=== PATIENT | female | born 1955 | race Caucasian/White ===

== ENCOUNTER 2021-07-20 08:39 | Emergency (ER) | payer OTHER, BC, SELFPAY ==
--- NOTE | ~2021-07-20 | CT_ITS ---
EXAMINATION: CT cervical spine wo con DATE: 07/20/2021 09:07 INDICATION: Fall on ice this morning. Head and neck injury. TECHNIQUE: Computed tomography (CT) of the cervical spine was performed without intravenous contrast. Automated exposure control and iterative reconstruction technique were employed. Exam dose: 436.55 mGy-cm total exam DLP. COMPARISON: None FINDINGS: There is prominent enlargement of the left lobe of the thyroid gland which measures up to 3 .8 cm AP and 4 cm transverse dimension. Consider thyroid ultrasound examination for further evaluatio n. There is straightening of the cervical spine which may be due to muscle spasm or positioning. Mild degenerative disc disease at C4-5. There is moderately severe degenerative disc disease C5-6 and C6-7 with anterior and posterior spurri ng at each of these levels.. There is degenerative change at the apophyseal joints throughout the cervical spine. Uncovertebral nicho int spurring is noted at C5-6 and C6-7, particularly prominent on the right at C6-7. No fracture or dislocation or locked facet or prevertebral soft tissue swelling. IMPRESSION: Straightening of the cervical spine which may be due to muscle spasm Cervical spondylosis, most pronounced at C5-6 and C6-7 No fracture or dislocation or locked facet Prominent enlargement of left lobe of thyroid gland; consider thyroid ultrasound examination Reviewed, dictated and finalized at [facility]. Reviewed, dictated and finalized at location [facility]. N SERVICES SUPERVISOR IMPRESSION: Straightening of the cervical spine which may be due to muscle spa sm Cervical spondylosis, most pronounced at C5-6 and C6-7 No fracture or dislocation or locked facet Prominent enlargement of left lobe of thyroid gland; consider thyroid ultrasoun d examination
--- NOTE | ~2021-07-20 | CT_ITS ---
EXAMINATION: CT brain wo con DATE: 07/20/2021 09:07 INDICATION: Patient fell on ice this morning. Head injury. TECHNIQUE: Computed tomography (CT) of the head was performed without intravenous contrast. The mA wa s adjusted according to patient size. Iterative reconstruction technique was employed. Exam dose: 60 5.33 mGy-cm total exam DLP. COMPARISON: None FINDINGS: No intracranial mass lesion or hemorrhage or cerebrovascular accident, midline shift or mas s effect. Normal ventricular size. There is bilateral carotid siphon internal carotid artery calcification. No subdural or epidural hematoma. Small mucous retention cyst at the posteromedial right maxillary sinus and mild focal mucoperiosteal thickening of the right sphenoid sinus. The mastoid air cells are normally developed and aerated. No fracture or bone destruction of the cranial vault. IMPRESSION: No skull fracture or acute intracranial abnormality Reviewed, dictated and finalized at [facility]. Reviewed, dictated and finalized at location [facility]. LE FRAME SHAPER
[2021-07-20 08:42] VITALS: BP 157/81; PULSE 63; RESP 16; TEMP 36.7; O2SAT 99
--- NOTE | 2021-07-20 09:05 | ED.GENADULT ---
HPI - General Adult General Chief complaint: Head Injury Stated complaint: head injury, fall Time Seen by Provider: 07/20/21 08:43 Source: patient and family Mode of arrival: ambulatory Limitations: no limitations History of Present Illness HPI narrative: Patient is 65 years old white female slipped on ice early this morning fell backward, struck the back of her head on the ground, no loss of consciousness, patient denies taking any blood thinner medications, or other injuries. Patient also denies any nausea or vomiting. Related Data Home Medications Medication Instructions Recorded Confirmed omeprazole 40 mg PO DAILY 07/20/21 Allergies Allergy/AdvReac Type Severity Reaction Status Date / Time No Known Allergies Allergy Mild Verified 07/20/21 08:49 Review of Systems Review of Systems: CONSTITUTIONAL: Denies fever, chills, or sweats. EYES: Denies visual changes, redness, or discharge. ENT: Denies rhinorrhea, congestion, sore throat, or otalgia. CARDIOVASCULAR: Denies chest pain, palpitations, or edema. RESPIRATORY: Denies cough or dyspnea. GASTROINTESTINAL: Denies abdominal pain, nausea, vomiting, or diarrhea. GENITOURINARY: Denies dysuria or hematuria. SKIN: Denies rash or itching. MUSCULOSKELETAL: Denies back pain, joint pain, or myalgia. NEUROLOGIC: Denies headache, numbness, or weakness. PSYCHIATRIC: Denies anxiety or depression. Exam Narrative: General appearance: Well-developed, well-nourished Skin: Normal color Head: Normocephalic, slight diffuse tenderness posteriorly, no bruises or hematoma Eyes: Clear conjunctiva ENT: Oropharynx normal, ears normal, nose normal Neck: Supple, nontender Chest and respiratory: Airway patent, no respiratory distress, no accessory muscle use Heart: Regular rate/rhythm Abdomen: Soft, nontender, no organomegaly, quiet bowel sounds Vascular: Normal peripheral pulses, normal capillary refill. Musculoskeletal: Normal range of motion, nontender back Neurologic: Alert and oriented ?3, PLASTIC STRAIGHTENING ROLL OPERATOR is normal as tested, no gross motor deficit Course Course Emergency Course: Stable Vital Signs Vital signs: Vital Signs Temperature 36.7 C 07/20/21 08:42 Pulse Rate 63 07/20/21 08:42 Respiratory Rate 16 07/20/21 08:42 Blood Pressure 157/81 H 07/20/21 08:42 Pulse Oximetry 99 07/20/21 08:42 Temperature 36.7 C 07/20/21 08:42 Pulse Rate 63 07/20/21 08:42 Respiratory Rate 16 07/20/21 08:42 Blood Pressure 157/81 H 07/20/21 08:42 Pulse Oximetry 99 07/20/21 08:42 Medical Decision Making MDM Narrative Medical decision making narrative: Head injury after a fall, no loss of consciousness, the possibility any major injury is less likely, CT head and cervical spine ordered. Differential Diagnosis Differential Diagnosis: Contusion, scalp hematoma, intracranial hematoma or bleeding Vital Signs Vital Signs: Vital Signs Temperature 36.7 C 07/20/21 08:42 Pulse Rate 63 07/20/21 08:42 Respiratory Rate 16 07/20/21 08:42 Blood Pressure 157/81 H 07/20/21 08:42 Pulse Oximetry 99 07/20/21 08:42 Temperature 36.7 C 07/20/21 08:42 Pulse Rate 63 07/20/21 08:42 Respiratory Rate 16 07/20/21 08:42 Blood Pressure 157/81 H 07/20/21 08:42 Pulse Oximetry 99 07/20/21 08:42 Imaging Data Radiologist's impression: Impressions Head CT 07/20/21 09:08 IMPRESSION: No skull fracture or acute intracranial abnormality Cervical Spine CT 07/20/21 09:12 IMPRESSION: Straightening of the cervical spine which may be due to muscle spasm Cervical spondylosis, most pronounced at C5-6 and C6-7 No fracture or dislocation or locked facet Prominent enlargement of le
== END 2021-07-20 09:52 | disposition home or self-care (01) ==
PROVIDERS: Emergency Provider Emergency Medicine
DX: S06.0X0A Concussion without loss of consciousness, initial encounter (principal); W00.0XXA Fall on same level due to ice and snow, initial encounter
CPT/HCPCS: 70450; 72125; 99284

== ENCOUNTER 2021-11-07 14:41 | Emergency (ER) | payer BC, SELFPAY ==
--- NOTE | 2021-11-07 14:51 | ED.SKABFB ---
HPI - Skin/Abscess/Foreign Bdy General Chief complaint: Skin/Abscess/Foreign Body Stated complaint: INSECT BITE L FOOT Time Seen by Provider: 11/07/21 14:51 Source: patient and RN notes reviewed History of Present Illness HPI narrative: Patient is 65-year-old female who presents the urgent care with complaints of an insect bite to the left foot. Patient states that she noticed that 3 days ago while she was on vacation. Patient states that she has been soaking it in Epson salt. States that she has been itching a lot over the last few days and her sandal did rub directly over the area, causing some bruising. States that it became increased in swelling however she does typically have lower extremity swelling and they have been driving for hours this morning. Patient denies of any fever, nausea or vomiting. No other acute complaints. No acute distress noted. Patient aware of the plan of care. Some parts of this dictation were generated by voice recognition software and may contain typographical and/or grammatical inaccuracies. Related Data Home Medications Medication Instructions Recorded Confirmed omeprazole 40 mg capsule,delayed 40 mg PO DAILY 07/20/21 11/07/21 release Allergies Allergy/AdvReac Type Severity Reaction Status Date / Time No Known Allergies Allergy Mild Verified 11/07/21 15:04 Review of Systems Review of Systems: CONSTITUTIONAL: Denies fever, chills, or sweats. EYES: Denies visual changes, redness, or discharge. ENT: Denies rhinorrhea, congestion, sore throat, or otalgia. CARDIOVASCULAR: Denies chest pain, palpitations, or edema. RESPIRATORY: Denies cough or dyspnea. GASTROINTESTINAL: Denies abdominal pain, nausea, vomiting, or diarrhea. GENITOURINARY: Denies dysuria or hematuria. SKIN: Reports of an insect bite to the left foot MUSCULOSKELETAL: Denies back pain, joint pain, or myalgia. NEUROLOGIC: Denies headache, numbness, or weakness. All other systems reviewed are negative, except as documented in HPI. PMFSH Comments At the time of my signature, I reviewed and agree with the nursing past medical, surgical, social, and family history. There is no relevant family history pertinent to the patient complaint. Exam Narrative: GENERAL: This is a well-nourished, well-developed patient, in no apparent distress. HEAD: normocephalic, atraumatic. EYES: PERRL. Sclera clear/white. Vision is grossly intact. EARS: External ears normal NOSE: External nose normal with no obvious nasal discharge, nares without redness, no rhinorrhea. THROAT: Mucous membranes moist NECK: Neck supple CARDIOVASCULAR: Regular rate and rhythm without murmurs, gallops, or rubs. RESPIRATORY: Clear to auscultation. Breath sounds equal bilaterally. No wheezes, rales, or rhonchi. SKIN: 4 x 4 centimeter of erythema/ecchymosis noted to the lateral dorsal left foot with pinpoint puncture wound without drainage NEURO: awake, alert, and oriented to person, place and time. There were no obvious focal neurologic abnormalities. EXTREMITIES: 2+ left lower pitting edema, 1+ right lower extremity pitting edema. Positive strong bilateral pedal pulses. Negative bilateral Homans' sign Course Course Level of Care: Express Care Visit Vital Signs Vital signs: Vital Signs Temperature 96.4 F L 11/07/21 15:06 Pulse Rate 62 11/07/21 15:06 Respiratory Rate 18 11/07/21 15:06 Blood Pressure 135/70 11/07/21 15:06 Pulse Oximetry 100 11/07/21 15:06 Temperature 96.4 F L 11/07/21 15:06 Pulse Rate 62 11/07/21 15:06 Respiratory Rate 18 11/07/21 15:06 Blood Pressure 135/70 11/07/21 15:06 Pulse Oximetry 100 11/07/21 15:06 Reviewed MDM - Skin/Abscess/Foreign Bdy MDM Narrative Medical decision making narrative: Advised the patient to keep the feet elevated and use ice to the left foot as needed for comfort or pain. Increased swelling is likely related to your recent travel. Advised the patient to complete the oral antibi
[2021-11-07 15:06] VITALS: BP 135/70; PULSE 62; RESP 18; TEMP 35.8; O2SAT 100
== END 2021-11-07 15:50 | disposition home or self-care (01) ==
PROVIDERS: Emergency Provider Nurse Practitioner Family; PCP Family Medicine
DX: L03.116 Cellulitis of left lower limb (principal); K21.9 Gastro-esophageal reflux disease without esophagitis
CPT/HCPCS: 99213; G0463

== ENCOUNTER 2022-03-27 02:29 | Day surgery (SDC) | payer MEDICARE, SELFPAY ==
[2022-03-08 15:45] VITALS: BMI 36.8
--- NOTE | 2022-03-25 09:59 | PM.HPGS ---
History of Present Illness History of Present Illness Consent: Risks, benefits, and alternatives have been discussed and questions answered. Patient agrees to proceed with procedure. Chief complaint: neoplasm screening Narrative: Millicent Wellington is a 66 year old female referred for colon cancer screening. Review of Systems Review of Systems: All systems reviewed & are unremarkable except as noted in HPI and below PMFSH Past Medical History Medical History GERD (gastroesophageal reflux disease) Hyperlipidemia Social History Social History Smoking status: Never smoker Alcohol intake: current Drinks per week: 1 Substance use type: does not use Living arrangements: other Additional living arrangements comments: with sp Meds Home Medications and Allergies Home Medications Medication Instructions Recorded Confirmed Type omeprazole 40 mg capsule,delayed 40 mg PO DAILY 07/20/21 03/08/22 History release atorvastatin 10 mg tablet 10 mg PO DAILY 03/08/22 03/08/22 History Allergies Allergy/AdvReac Type Severity Reaction Status Date / Time No Known Allergies Allergy Mild Verified 03/27/22 08:39 Exam Resp: Auscultation: clear to auscultation bilaterally Cardio: Rate: regular rate Rhythm: regular rhythm GI: GI Palp: Yes Soft to palpation and No Tenderness to palpation present (GI) Assessment and Plan Assessment and plan (1) Colon cancer screening: Code(s): Z12.11 - Encounter for screening for malignant neoplasm of colon Status: Acute Assessment and Plan: Colonoscopy with possible biopsy or polypectomy or cautery or injection of substances.
--- NOTE | 2022-03-27 08:38 | WPDANESEPPF ---
Anes - Initial Pre Proc Eval Procedure: Operation Date: 03/27/22 09:30 Proposed Procedures p Screening Colonoscopy - Andre Mcclendon MD Date/Time: 03/27/22 08:38 Surgeon: Andre Mcclendon MD Pre Op Diagnosis: neoplasm screening Patient Data Age: 66 Gender: F Height: 1.68 m Weight: 103.5 kg Allergies Allergy/AdvReac Type Severity Reaction Status Date / Time No Known Allergies Allergy Mild Verified 03/27/22 08:39 Home Medications Medication Instructions Recorded Confirmed Type omeprazole 40 mg capsule,delayed 40 mg PO DAILY 07/20/21 03/08/22 History release atorvastatin 10 mg tablet 10 mg PO DAILY 03/08/22 03/08/22 History Patient hx anesthesia problems: none Family hx anesthesia problems: none Results Review: All pre-operative results and documents have been reviewed as part of the pre-operative evaluation. [facility] Past Medical History Medical History (Updated 03/27/22 @ 08:38 by Elmo Knutson DO) GERD (gastroesophageal reflux disease) Hyperlipidemia Social History Social History Smoking status: Never smoker Alcohol intake: current Drinks per week: 1 Substance use type: does not use Living arrangements: other Additional living arrangements comments: with sp Anes - Eval Final PreProcedure Day of Procedure 03/27/22 08:38 Patient weight: obese Heart: regular rate and rhythm Lungs: clear to auscultation Airway: Mallampati scale class II Neurological: alert and oriented Last oral intake: >/= 8 hours ASA classification: II Emergent: no Anesthetic plan: proceed Anesthesia type and monitoring: general GIVS and standard monitoring Results Review: All pre-operative results and documents have been reviewed as part of the pre-operative evaluation. Informed Consent: The patient's anesthetic plan and its attendant risks and benefits were discussed with the patient/family/POA. Questions were solicited and answers provided to the satisfaction of the patient/family/POA.
[2022-03-27 08:41] VITALS: BP 147/65; PULSE 48; RESP 20; TEMP 36.2; O2SAT 100; BMI 36.2
[2022-03-27] MEDS: LACTATED RINGERS 1,000 ML 150 ML IV CONT (08:44)
[2022-03-27 09:43] VITALS: BP 116/64; PULSE 55; RESP 17; O2SAT 97
[2022-03-27 09:53] VITALS: BP 142/77; PULSE 53; RESP 19; O2SAT 98
[2022-03-27 10:03] VITALS: BP 142/74; PULSE 63; RESP 18; O2SAT 100
== END 2022-03-27 10:13 | disposition home or self-care (01) ==
PROVIDERS: PCP Family Medicine; Visit Provider Internal Medicine Gastroenterology
PROC: 0DJD8ZZ Inspection of Lower Intestinal Tract, Via Natural or Artificial Opening Endoscopic (ICD-10-PCS; CPT 45378; principal; 2022-03-27 09:30)
DX: Z12.11 Encounter for screening for malignant neoplasm of colon (principal); K57.30 Diverticulosis of large intestine without perforation or abscess without bleeding; Z80.0 Family history of malignant neoplasm of digestive organs; K21.9 Gastro-esophageal reflux disease without esophagitis; E78.5 Hyperlipidemia, unspecified; E66.9 Obesity, unspecified; Z68.36 Body mass index [BMI] 36.0-36.9, adult
CPT/HCPCS: G0105; J2704; J7120

== ENCOUNTER → 2023-04-06 08:13 | Outpatient (CLI) | payer MEDICARE, SELFPAY ==
--- NOTE | ~2023-04-06 | US_ITS ---
US breast LT limited DATE: 04/06/2023 14:44 Please refer to 05/07/2023 combined left diagnostic mammogram and ultrasound report IMPRESSION: BI-RADS Category 4 suspicious abnormality; biopsy should be considered Recommendation: Stereotactic biopsy of posterior upper outer quadrant left breast mass Dr. Pruitt telephoned the report and ultrasound-guided biopsy recommendation on 04/06/2023 at [address] Borrero Reviewed, dictated and finalized at [facility]. Reviewed, dictated and finalized at [facility]. IMPRESSION: BI-RADS Category 4 suspicious abnormality; biopsy should be conside red Recommendation: Stereotactic biopsy of posterior upper outer quadrant left breonna st mass Dr. Pruitt telephoned the report and ultrasound-guided biopsy recommendation on at [address] Borrero
--- NOTE | ~2023-04-06 | MM_ITS ---
EXAMINATION: MM diagnostic miguel LT w dong HISTORY: Follow-up of left breast mammographic abnormality from another facility TECHNIQUE: Full field and spot ML, MLO and CC 3-D tomosynthesis images of the left breast were perfor med and synthetic 2-D images were generated. CAD analysis was submitted and interpreted. High resolut ion upper outer and lower-outer quadrant left breast ultrasound was performed. COMPARISON: 06/26/2022, 05/25/2021, 05/05/2020 outside bilateral screening mammogram examinations FINDINGS: MAMMOGRAPHIC FINDINGS: There is an approximately 4.5 mm circumscribed mammographic opacity in the upper outer quadrant with lobular outline, not present on 04/25/2020. This is suspicious. 2.7 x 4.5 mm low-density circumscribed opacity is noted in the posterior outer mid left breast (left CC Tomosynthesis image 31/82), likely a small intramammary lymph node or other benign entity. No other significant finding is noted. ULTRASOUND: 3:00 8 cm from nipple: Parallel circumscribed approximately 1.4 x 2.8 x 3 mm hypoechoic lesion is not ed without internal vascularity or posterior shadowing, benign in appearance. No other significant sonographic abnormality of the upper outer or lower outer quadrants of left breonna st is detected. IMPRESSION: 1. Suspicious 4.5 mm mass, posterior upper outer left breast 2. Stereotactic biopsy of posterior upper outer quadrant left breast mass is recommended BI-RADS category 4, suspicious findings. Reviewed, dictated and finalized at [facility]. IMPRESSION: 1. Suspicious 4.5 mm mass, posterior upper outer left breast 2. Stereotactic biopsy of posterior upper outer quadrant left breast mass is re commended BI-RADS category 4, suspicious findings.
== END ==
PROVIDERS: PCP Family Medicine; Visit Provider Family Medicine
DX: R92.8 Other abnormal and inconclusive findings on diagnostic imaging of breast (principal)
CPT/HCPCS: 76642; 77061; 77065; G0279

== ENCOUNTER 2023-04-24 12:51 | Outpatient (CLI) | payer MEDICARE, SELFPAY ==
--- NOTE | ~2023-04-24 | MM_ITS ---
EXAMINATION: MM stereotactic bx LT, MM post biopsy diagnostic LT, MM stereotactic specimen LT DATE: 04/24/2023 14:20 (accession [id number]), 04/24/2023 14:21 (accession [id number]), 04/24 14:21 (accession [id number]) INDICATION: Indeterminate mass at the 12:00 location of the left breast without sonographic correlate . Stereotactic core biopsy is requested evaluate for malignancy. TECHNIQUE AND FINDINGS: The risks and potential benefits of the procedure were discussed with the patient including bleeding and infection. A time out was performed to verify the patient's name, date of and site of proce dure to be performed. The patient was placed in the prone position with the left breast in craniocaud al compression, and the area of interest was localized and targeted utilizing digital imaging with st ereotaxis. After sterile preparation of the skin, 3 cc of 1% lidocaine were utilized for local anesthesia at the skin puncture site and 18 of 1% lidocaine with epinephrine were utilized for deeper local anesthesia about the biopsy site. A 9G Stackdriver vacuum assisted biopsy needle was advanced to the level of the carlos alberto cification of interest from a cephalad approach utilizing stereotactic guidance and a total of six ti ssue core biopsies were obtained. A specimen radiograph demonstrates fragments of the mass of interest are included within the tissue c ores. A tissue marker clip was then placed at the biopsy site. The needle was removed and hemostasis was achieved. A sterile bandage was applied. The patient tolerated procedure well and there was no e vidence of immediate complication. The patient was given verbal instructions to return to the Emergen cy Department in the event of severe breast pain or rapid breast enlargement. Tissue cores were submi tted to surgical pathology for histologic analysis. A 2-view left unilateral digital mammogram was obtained post procedure and this demonstrates that the tissue marker clip is in expected position. IMPRESSION: 1. Successful stereotactic biopsy of an indeterminate mass at the 12:00 location in the left breast, followed by tissue marker clip placement. Reviewed, dictated and finalized at location A. O AGENT IMPRESSION: 1. Successful stereotactic biopsy of an indeterminate mass at the 12:00 locatio n in the left breast, followed by tissue marker clip placement. IMPRESSION: 1. Successful stereotactic biopsy of an indeterminate mass at the 12:00 locatio n in the left breast, followed by tissue marker clip placement.
== END 2023-04-24 12:52 | disposition home or self-care (01) ==
PROVIDERS: PCP Family Medicine; Visit Provider Family Medicine
DX: R92.8 Other abnormal and inconclusive findings on diagnostic imaging of breast (principal)
CPT/HCPCS: 19081; 77065; 88305; 88342

== ENCOUNTER 2023-10-17 08:26 | Outpatient (CLI) | payer MEDICARE, SELFPAY ==
--- NOTE | ~2023-10-17 | DEXA_ITS ---
Bone Density Report Name: ZAID YBARRA Age: 67 Sex: Female Ethnicity: White Date of : 1955 Indication: postmenopausal; screening for osteoporosis; cancer; Referring Provider: Elgin, Omar June Study: Bone densitometry was performed. Exam Date: October 17, 2023 Accession number: [id number] Bone Density: Region BMD T-score Z-score Classification AP Spine (L1-L4) 1.130 0.8 2.7 Normal Femoral Neck (Left) 0.820 -0.3 1.4 Normal Total Hip (Left) 0.997 0.4 1.8 Normal Femoral Neck (Right) 0.799 -0.4 1.2 Normal Total Hip (Right) 0.928 -0.1 1.3 Normal Total Hip Mean 0.963 0.2 1.6 Normal World Health Organization criteria for BMD impression classify patients as: Normal (T-score at or above -1.0), Osteopenia (T-score between -1.0 and -2.5), or Osteoporosis (T-score at or below -2.5). 10-year Fracture Risk: FRAX not reported because: All T-scores for Spine Total, Hip Total, Femoral Neck at or above -1.0 Previous Exams: Region Exam Age BMD T-score BMD Change BMD Change Date g/cm2 vs Baseline vs Previous AP Spine(L1-L4) 10/17/2023 67 1.130 0.8 -0.110* -0.110* 12/20/2009 54 1.240 1.8 Total Hip(Left) 10/17/2023 67 0.997 0.4 -0.041* -0.041* 12/20/2009 54 1.038 0.8 Total Hip(Right) 10/17/2023 67 0.928 -0.1 -0.154* -0.154* 12/20/2009 54 1.083 1.2 *Denotes significance at 95% confidence level, LSC for AP Spine = 0.022 g/cm2, LSC for Total Hip = 0.027 g/cm2 Clinical Information Provided by Patient: Has the following medical conditions: Cancer, breast cancer 2022 Patient maximum height was 66.75 Menopause Age: 50 Does not regularly consume dairy products Drinks caffeinated beverages Onset of menses at age 12 Number of children 2 Impression: The patient has normal bone mass. The BMD for the AP Spine(L1-L4) decreased, changing by -0.110 since the last DXA exam. The BMD for the Total Hip(Left) decreased, changing by -0.041 since the last DXA exam. The BMD for the Total Hip(Right) decreased, changing by -0.154 since the last DXA exam. Discussion: BONE DENSITY IS ABOVE THE MINIMUM DESIRABLE LEVEL AT ALL SKELETAL SITES TESTED. This patient?s bone mineral density is above the minimum desirable level (T-score -1.0 or better) at all sites measured. The patient should follow a healthful lifestyle (good nutrition with adequate calcium and vitamin D, and appropriate weight-bearing exercise).
== END 2023-10-17 08:27 ==
LOC: MICIMG 08:27
PROVIDERS: PCP Internal Medicine Medical Oncology; Visit Provider Internal Medicine Medical Oncology
DX: M81.0 Age-related osteoporosis without current pathological fracture (principal)
CPT/HCPCS: 77080

== ENCOUNTER 2024-12-27 09:21 | Emergency (ER) | payer MEDICARE, SELFPAY ==
[2024-12-27 09:33] VITALS: BP 147/64; PULSE 61; RESP 16; TEMP 36.4; O2SAT 100
--- NOTE | 2024-12-27 09:50 | ED_ITS ---
HPI - Eye Problem General Chief complaint: Eye Problems Stated complaint: Swollen Eye Time Seen by Provider: 12/27/24 09:43 Source: patient and RN notes reviewed Mode of arrival: ambulatory Limitations: no limitations History of Present Illness HPI Narrative: Patient presents today complaining of swelling and itching to the right upper and lower eyelids x2 days. Denies pain or vision changes. Denies drainage or redness to the eye. She has been using topical and oral Benadryl without much improvement. States she may have gotten bitten by an insect her upper eyelid but is unsure. No history of diabetes. Related Data Home Medications ?Medication ?Instructions ?Recorded ?Confirmed ?Last Taken ?Type letrozole 2.5 mg tablet mg PO 10/20/24 10/20/24 Unknown History Allergies Allergy/AdvReac Type Severity Reaction Status Date / Time No Known Allergies Allergy Mild Verified 10/20/24 12:58 [facility] Past Medical History Medical History Breast cancer GERD (gastroesophageal reflux disease) Hyperlipidemia Family History Family History Mother Breast cancer Father Carcinoma of colon Sibling Breast cancer Grandparent Carcinoma of colon Social History Social History Smoking status: Never smoker Alcohol intake: current Drinks per week: 4 Substance use: never Substance use type: does not use Do You Feel Safe in your Home?: Yes Lack of Transportation: No Lack of Food: Never True Current Housing: I Have Housing Concerned About Future Housing: No Difficulty Paying Gas/Electric Bills: No Difficulty Paying for Meds: No Currently Unemployed: No Education: Bachelor's Degree Difficulty w/ Childcare or Family Care: No Living arrangements: other Additional living arrangements comments: with sp Comments At time of signature, I have reviewed and agree with nursing past medical, surgical, social and family history unless otherwise noted. Please see nursing chart for further information. There is no relevant family history pertinent to the presenting complaint Exam Narrative: GENERAL: Well-appearing, well-nourished, and in no acute distress. HEAD: Normocephalic, atraumatic. EYES: EOMI. PERRL. Normal conjunctiva bilaterally. Right eye: Moderate swelling of the upper eyelid that extends to the eyebrow with mild erythema. Mild swelling of the lower eyelid. No induration. No tenderness. No drainage. Lashes normal. ENT: Mucous membranes pink and moist. NECK: Normal AROM. CHEST: No respiratory distress. EXTREMITIES: Normal range of motion. No edema. SKIN: Warm, dry, no rash. Capillary refill normal. Normal skin turgor. NEURO: No focal deficits. Alert and oriented x3. Gait steady. PSYCH: Normal affect. No signs of depression or anxiety. Course Course Level of Care: Express Care Visit Vital Signs Vital signs: Vital Signs Temperature 97.6 F 12/27/24 09:33 Pulse Rate 61 12/27/24 09:33 Respiratory Rate 16 12/27/24 09:33 Blood Pressure 147/64 H 12/27/24 09:33 Pulse Oximetry 100 12/27/24 09:33 Temperature 97.6 F 12/27/24 09:33 Pulse Rate 61 12/27/24 09:33 Respiratory Rate 16 12/27/24 09:33 Blood Pressure 147/64 H 12/27/24 09:33 Pulse Oximetry 100 12/27/24 09:33 Reviewed MDM - Eye Problem MDM Narrative Medical decision making narrative: 69-year-old female patient presents with swelling and itching to the right upper and lower eyelids x2 days. Believe she may have gotten bit by an insect. Denies pain, drainage, vision changes. She has tried some topical and oral Benadryl without improvement. Upon exam there is some moderate swelling to the eyelids without induration or drainage, consistent with an allergic reaction and likely insect bite. Patient will be started on some prednisone to help with the swelling and is to continue an antihistamine. At this time there is no sign of bacterial infection. Vital signs stable. Patient agrees with plan. Anticipatory guidance given. Differential Diagnosis Differential diagnosis: Likely corneal abrasion, conjunctivitis and other (Insect bite, allergic reaction) Critical Care Time Critical Care Time Critical Care Time: No Discharge Plan Discharge Clinical Impression: Allergic reaction to insect bite Patient Disposition: Home Condition: Stable Instructions: Insect Bite or Sting (ED) Additional Instructions: Your symptoms are likely due to an insect bite. You have been given your 1st dose of steroids today in an injection. Start the oral prednisone tomorrow if you still have some swelling. You may continue Benadryl or a different antihistamine such as Zyrtec, Claritin, or Va if needed. Follow-up with your PCP next week if symptoms persist. Your blood pressure was elevated above 120/80 today at Urgent Care. This puts you above the threshold for follow up. Please schedule a followup visit with your personal physician as soon as possible, for further evaluation and treatment. Even blood pressure exceeding 120/80 may indicate pre-hypertension. Patient Language: German Prescriptions: New prednisone 20 mg tablet 40 mg PO DAILY 3 Days Qty: 6 0RF No Action letrozole 2.5 mg tablet PO simvastatin 10 mg tablet 10 mg PO DAILY Qty: 90 1RF omeprazole 20 mg capsule,delayed release(DR/EC) 20 mg PO BID Qty: 180 1RF Follow-up/Referrals: Phoebe Zarco DO [Primary Care Provider] - Time of Disposition: 09:55
[2024-12-27] MEDS: dexAMETHasone SOD PHOS INJ 10 MG/ML 1 ML VIAL IM (10:00)
== END 2024-12-27 10:24 | disposition home or self-care (01) ==
PROVIDERS: Emergency Provider Nurse Practitioner; PCP Family Medicine
DX: S00.261A Insect bite (nonvenomous) of right eyelid and periocular area, initial encounter (principal); W57.XXXA Bitten or stung by nonvenomous insect and other nonvenomous arthropods, initial encounter; E78.5 Hyperlipidemia, unspecified; K21.9 Gastro-esophageal reflux disease without esophagitis; Z85.3 Personal history of malignant neoplasm of breast
CPT/HCPCS: 96372; 99213; G0463; J1100

== ENCOUNTER 2025-04-03 18:30 | Emergency (ER) | payer OTHER, MEDICARE, SELFPAY ==
--- NOTE | ~2025-04-03 | XR_ITS ---
XR elbow RT min 3V INDICATION: pain s/p fall . COMPARISON: None. FINDINGS: AP, lateral and oblique views of the right elbow demonstrate no acute fracture or dislocation. Degenerative changes with joint space narrowing and subchondral sclerosis. IMPRESSION: No acute fracture or dislocation. Reviewed, dictated and finalized at location S.
--- NOTE | ~2025-04-03 | XR_ITS ---
XR wrist LT min 3V INDICATION: pain s/p fall . COMPARISON: None. FINDINGS: Frontal, lateral and oblique views of the left wrist were obtained. There is a acute oblique fracture of the fourth metacarpal. Moderate degenerative changes with joint space narrowing particularly at the basal joint of the thumb and radiocarpal joint IMPRESSION: Acute fracture of the fourth metacarpal. Reviewed, dictated and finalized at location S.
--- NOTE | ~2025-04-03 | XR_ITS ---
XR hand LT min 3V INDICATION: pain s/p fall . COMPARISON: None. FINDINGS: Frontal, lateral, and oblique views of the left hand demonstrate volar subluxation of the middle phalanx of the fifth finger relative to the proximal phalanx. No acute fracture. Moderate degenerative changes. IMPRESSION: No acute fracture or dislocation. Reviewed, dictated and finalized at location S.
[2025-04-03 18:40] VITALS: BP 147/79; PULSE 61; RESP 16; TEMP 36.6; O2SAT 100
--- NOTE | 2025-04-03 18:51 | ED_ITS ---
HPI - General Adult General Chief complaint: Extremity Injury, Upper Stated complaint: L HAND/R ELBOW INJURY Source: patient and family Mode of arrival: ambulatory Limitations: no limitations History of Present Illness HPI narrative: Patient presents for evaluation of left wrist/ hand pain and right elbow pain. She indicates she was at [employer] just prior to arrival when she missed a step, falling to the ground. She did not hit her head. No loss of consciousness. She is not on blood thinners. She now reports 6/10 pain in the right elbow, left hand and left wrist. She is right-hand dominant. No loss of range of motion. She has not taken any medication to assist with her symptoms. Denies paresthesias. Up-to-date on tetanus. Related Data Home Medications ?Medication ?Instructions ?Recorded ?Confirmed ?Last Taken ?Type letrozole 2.5 mg tablet mg PO 10/20/24 03/12/25 Unkn own History Allergies Allergy/AdvReac Type Severity Reaction Status Date / Time No Known Allergies Allergy Mild Verified 04/03/25 18:39 Review of Systems Review of Systems: CONSTITUTIONAL: Denies fever, chills, or sweats. EYES: Denies visual changes, redness, or discharge. ENT: Denies rhinorrhea, congestion, sore throat, or otalgia. CARDIOVASCULAR: Denies chest pain, palpitations, or edema. RESPIRATORY: Denies cough or dyspnea. GASTROINTESTINAL: Denies abdominal pain, nausea, vomiting, or diarrhea. GENITOURINARY: Denies dysuria or hematuria. SKIN: Denies rash or itching. MUSCULOSKELETAL: Reports pain in left hand/wrist and right elbow NEUROLOGIC: Denies headache, numbness, dizziness, or weakness. PSYCHIATRIC: Denies anxiety or depression. [facility] Past Medical History Medical History Breast cancer GERD (gastroesophageal reflux disease) Hyperlipidemia Surgical History Surgical History History of lumpectomy Family History Family History Mother Breast cancer Father Carcinoma of colon Sibling Breast cancer Grandparent Carcinoma of colon Social History Social History Smoking status: Never smoker Alcohol intake: current Drinks per week: 4 Substance use: never Substance use type: does not use Do You Feel Safe in your Home?: Yes Lack of Transportation: No Lack of Food: Never True Current Housing: I Have Housing Concerned About Future Housing: No Difficulty Paying Gas/Electric Bills: No Difficulty Paying for Meds: No Currently Unemployed: No Education: Bachelor's Degree Difficulty w/ Childcare or Family Care: No Living arrangements: other Additional living arrangements comments: with sp Exam Narrative: GENERAL: Well-appearing, well-nourished, and in no acute distress. HEAD: Normocephalic, atraumatic. EYES: PERRLA and EOMI. ENT: Nares clear, no rhinorrhea or epistaxis. Mucous membranes moist. Oropharynx without tonsillar hypertrophy exudate or other lesions. Bilateral TMs pearly manning nonbulging NECK: Supple. No adenopathy or masses. No carotid bruits or JVD CHEST: Clear to auscultation. No respiratory distress. No wheezes rales or rhonchi HEART: Regular rate and rhythm. No murmur heard. Normal peripheral pulses. ABDOMEN: Soft, nontender, nondistended, normal active bowel sounds. EXTREMITIES: full range of motion of the right elbow but there is tenderness present. No obvious deformity. There is tenderness in the left wrist and dorsal aspect of the left hand. Full ROM of the left wrist and all digits of left hand. No obvious deformity SKIN: There are superficial abrasions noted to the left wrist. There is ecchymosis noted to the right elbow NEURO: No focal deficits. Alert and oriented x3. PSYCH: Normal mood and affect. Course Course Emergency Course: This is a 69-year-old female who presented for evaluation after experiencing a fall. She sustained a 4th metacarpal fracture. She was placed in a ulnar gutter splint and provided with a sling. She has a chronic contracture to the 5th digit of left hand so flexion of digit at the time of splint placement was limited. Will DC with hydrocodone. She should follow-up with orthopedics. Go to the emergency department for paresthesias or intractable pain. Patient in agreement with plan of care. Level of Care: Express Care Visit Vital Signs Vital signs: Vital Signs Temperature 36.6 C 10/24/25 18:40 Pulse Rate 61 04/03/25 18:40 Respiratory Rate 16 04/03/25 18:40 Blood Pressure 147/79 H 04/03/25 18:40 Pulse Oximetry 100 04/03/25 18:40 Temperature 36.6 C 04/03/25 18:40 Pulse Rate 61 04/03/25 18:40 Respiratory Rate 16 04/03/25 18:40 Blood Pressure 147/79 H 04/03/25 18:40 Pulse Oximetry 100 04/03/25 18:40 Procedures Orthopedic Splinting/Casting Injury #1: Splinting/Casting Date: 04/03/25 Splinting/Casting Time: 20:03 Side: left Upper Extremity Injury Location: hand Upper Extremity Immobilizer: ulnar gutter Splint: customized in ED OCL: ulnar gutter Pre-Procedure Neuro Vascular Exam: normal Post-Procedure Neuro Vascular Exam: normal Medical Decision Making Vital Signs Vital Signs: Vital Signs Temperature 36.6 C 04/03/25 18:40 Pulse Rate 61 04/03/25 18:40 Respiratory Rate 16 04/03/25 18:40 Blood Pressure 147/79 H 04/03/25 18:40 Pulse Oximetry 100 04/03/25 18:40 Temperature 36.6 C 04/03/25 18:40 Pulse Rate 61 04/03/25 18:40 Respiratory Rate 16 04/03/25 18:40 Blood Pressure 147/79 H 04/03/25 18:40 Pulse Oximetry 100 04/03/25 18:40 Imaging Data Radiologist's impression: Ordering Physician: Devin Joshi APRN Date of Service: 04/03/25 Procedure(s): XR wrist LT min 3V Accession Number(s): [id number] cc: Devin Joshi APRN; Phoebe Zarco DO~ XR wrist LT min 3V INDICATION: pain s/p fall . COMPARISON: None. FINDINGS: Frontal, lateral and oblique views of the left wrist were obtained. There is a acute oblique fracture of the fourth metacarpal. Moderate deg enerative changes with joint space narrowing particularly at the basal joint of the thumb and radiocarpal joint IMPRESSION: Acute fracture of the fourth metacarpal. XR elbow RT min 3V INDICATION: pain s/p fall . COMPARISON: None. FINDINGS: AP, lateral and oblique views of the right elbow demonstrate no acute fracture or dislocation. Degenerative changes with joint space narrowing and subchondral sclerosis. IMPRESSION: No acute fracture or dislocation. Ordering Physician: Devin Joshi APRN Date of Service: 04/03/25 Procedure(s): XR hand LT min 3V Accession Number(s): [id number] cc: Devin Joshi APRN; Phoebe Zarco DO~ ADDENDUM There is a fracture of the fourth metacarpal. Addendum Dictated By: Maicol Schneider MD Addendum Signed By: <Electronically signed by Maicol Schneider MD in [place]> 04/03/251999 Addendum Cosigned By: DD/ TD/TT: / XR hand LT min 3V INDICATION: pain s/p fall . COMPARISON: None. FINDINGS: Frontal, lateral, and oblique views of the left hand demonstrate volar subluxation of the middle phalanx of the fifth finger relative to the proximal phalanx. No acute fracture. Moderate degenerative changes. IMPRESSION: No acute fracture or dislocation. Discharge Plan Discharge Clinical Impression: Contusion of elbow, right, Contusion of left wrist, Closed fracture of fourth metacarpal bone of left hand Patient Disposition: Home Condition: Stable Instructions: Antibiotic Form, Hand Fracture (ED), Contusion in Adults (ED) Additional Instructions: PLEASE WEAR YOUR SLING TO HELP WITH PAIN AND SWELLING PLEASE CALL ORTHOPEDICS ON SUNDAY FOR AN APPOINTMENT Patient Language: Stateless Prescriptions: New hydrocodone-acetaminophen 5-325 mg tablet 1 - 2 tablet PO Q6H PRN (Reason: pain) Qty: 20 0RF No Action letrozole 2.5 mg tablet PO omeprazole 20 mg capsule,delayed release(DR/EC) 20 mg PO BID Qty: 180 1RF simvastatin 10 mg tablet 10 mg PO DAILY Qty: 90 1RF Follow-up/Referrals: Keaton Egna MD [Physician, Orthopedics] Phoebe Zarco DO [Primary Care Provider, [facility]] Time of Disposition: 20:01
== END 2025-04-03 20:12 | disposition home or self-care (01) ==
PROVIDERS: Emergency Provider Nurse Practitioner; PCP Family Medicine
DX: S62.305A Unspecified fracture of fourth metacarpal bone, left hand, initial encounter for closed fracture (principal); S50.01XA Contusion of right elbow, initial encounter; S60.212A Contusion of left wrist, initial encounter; E78.5 Hyperlipidemia, unspecified; Z85.3 Personal history of malignant neoplasm of breast; W10.9XXA Fall (on) (from) unspecified stairs and steps, initial encounter
CPT/HCPCS: 73080; 73110; 73130; 99214; A4565; G0463

== ENCOUNTER 2025-04-14 11:25 | Outpatient (CLI) | payer MEDICARE, SELFPAY ==
--- OUTSIDE RECORDS SUMMARY | 2018-04-08 23:00 | XMS_ITS | Encounter Summary ---
Author Organization [facility] Healthcare Address [address] [place] [address] Care Team Providers Care Rn Wound Care Name Role Phone Unavailable Primary Care Provider Unavailabl e Reason for Visit * Diagnostic Imaging (Routine) - Closed Specialty Diagnoses / Procedures Referred By Robert t Referred To Contact Procedures Breast Imaging Screening Outside Reference Transcribed Order, Provider Referral ID Status Reason Start Date Expiration Date Visits Re quested Visits Authorized [id number] Closed 05/11/2023 06/09/2024 1 1 Encounter Details Date Type Department Care Team (Late st Contact Info) Description 04/09/2018 Hospital Encounter [facility] [address] [place] [id number] Social History Tobacco Use Types Packs/Day Years Used Date Smoking Tobacco: Never Cigarettes Smokeless Tobacco: Never AUDIT-C Answer Date Recorded Q1: How often do you have a drink containing alc ohol? 2-3 times a week 06/18/2023 Q2: How many drinks containi ng alcohol do you have on a typical day when you are drinking? 1 or 2 06/18/2023 Q3: How often do you have si x or more drinks on one occasion? Never 06/18/2023 Personal Safety Answer Date Recorded Have you ever been in or are you currently in a harmful physical or emotional relationship or is someone making you feel afraid or unsafe? 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 2-3 times a week 06/18/2023 8:09 AM Bety Hardy RN Q2: How many drinks containing alcohol do you have on a typical day when you are drinking? 1 or 2 06/18/2023 8:09 AM Bety Hardy Ma, RN Q3: How often do you have six or more drinks on one occasion? Never 06/18/2023 8:09 AM Bety Hardy RN documented as of this encounter Plan of Treatment Not on file documented as of this encounter Procedures Procedure Name Priority Date/Time Associated Diagnosis Comments BREAST IMAGING MG SCREENING OUTSIDE REFERENCE Routine 04/09/2018 12:00 AM CDT documented in this encounter Results * Breast Imaging Screening Outside Reference (04/09/2018 12:00 AM CDT) Impressions [facility] - 05/11/2023 2:45 PM MEDICAL CODING AUDITOR These images are for Reference purposes only and have not been reviewed by [facility]. There will be no report generated by a [facility] Radiologist. Narrative [facility] - 05/11/2023 2:45 PM MEDICAL CODING AUDITOR EXAMINATION: Images For Reference Purposes Only us Provider Transcribed Order IMG MAMMO PROCEDURES Final Result [facility] documented in this encounter Visit Diagnoses Not on filedocumented in this encounter
--- OUTSIDE RECORDS SUMMARY | 2019-04-23 | XMS_ITS | Encounter Summary ---
Author Organization [facility] Healthcare Address [address] [place] [address] Care Team Providers Care Director Shopper Marketing Name Role Phone Unavailable Primary Care Provider Unavailabl e Reason for Visit * Diagnostic Imaging (Routine) - Closed Specialty Diagnoses / Procedures Referred By Robert t Referred To Contact Procedures Breast Imaging Screening Outside Reference Transcribed Order, Provider Referral ID Status Reason Start Date Expiration Date Visits Re quested Visits Authorized [id number] Closed 05/11/2023 06/09/2024 1 1 Encounter Details Date Type Department Care Team (Late st Contact Info) Description 04/23/2019 Hospital Encounter [facility] [address] [place] [id number] Social History Tobacco Use Types Packs/Day Years [...] on file Legal 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 There will be no report generated by a [facility] Radiologist. Narrative [facility] - 05/11/2023 1:45 PM RETAIL GREETER EXAMINATION: Images For Reference Purposes Only us Provider Transcribed Order IMG MAMMO PROCEDURES Final Result [facility] documented in this encounter Visit Diagnoses Not on filedocumented in this encounter
--- OUTSIDE RECORDS SUMMARY | 2020-05-05 | XMS_ITS | Encounter Summary ---
Author Organization [facility] Healthcare Address [address] [place] [address] Care Team Providers Care [address] Light Repairer Name Role Phone Unavailable Primary Care Provider Unavailabl e Reason for Visit * Diagnostic Imaging (Routine) - Closed Specialty Diagnoses / Procedures Referred By Robert t Referred To Contact Procedures Breast Imaging Screening Outside Reference Transcribed Order, Provider Referral ID Status Reason Start Date Expiration Date Visits Re quested Visits Authorized [id number] Closed 05/11/2023 06/09/2024 1 1 Encounter Details Date Type Department Care Team (Late st Contact Info) Description 05/05/2020 Hospital Encounter [facility] [address] [place] [id number] Social History Tobacco Use Types Packs/Day Years [...] on file 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 There will be no report generated by a [facility] Radiologist. Narrative [facility] - 05/11/2023 1:48 PM MOLD CAR PUSHER EXAMINATION: Images For Reference Purposes Only us Provider Transcribed Order IMG MAMMO PROCEDURES Final Result [facility] documented in this encounter Visit Diagnoses Not on filedocumented in this encounter
--- NOTE | ~2025-04-14 | XR_ITS ---
EXAMINATION: XR hand LT min 3V, 04/14/2025 11:45 DIRECTOR OF EVENT MANAGEMENT HISTORY: S62.305A - Unspecified fracture of fourth metacarpal bone... COMPARISON: No comparisons available. Findings: Healing fracture of the fourth metacarpal. Moderate degenerative changes of the first metacarpal carpal joint. Soft tissues unremarkable. Impression: Healing fracture Reviewed, dictated and finalized at location P. CTOR OF EVENT MANAGEMENT Impression: Healing fracture
--- OUTSIDE RECORDS SUMMARY | 2025-04-14 13:47 | XMS_ITS | Clinical Summary ---
Author Organization [facility] Address [facility] [place] [address] Care Team Providers Care Milk Condenser Name Role Phone Randal Bullock MD Unavailable [phone] Omar Eisenberg DO Unavailable [phone] Clarisa Brown MD Unavailable [phone] Phoebe Zarco DO Primary Care Provider [phone] Allergies No known active allergies Medications omeprazole (PriLOSEC) 20 mg capsule Take 1 capsule (20 mg total) by mouth 2 (two) times a day 05/24/2024 Active simvastatin (ZOCOR) 10 mg tablet Take 1 tablet (10 mg total) by mouth daily 01/06/2025 Active letrozole (FEMARA) 2.5 mg tablet Take 1 tablet (2.5 mg total) by mouth daily 90 tablet 3 01/22/2025 Active Active Problems Problem Noted Date Diagnosed Date Palpitations 12/20/2023 Bradycardia 12/20/2023 PVC (premature ventricular contraction) 12/20/19 24 Personal history of radiation therapy 10/03/2023 Malignant neoplasm of overla pping sites of left breast in female, estrogen receptor positive 04/24/2023 04/24/2023 Cancer Staging:Clinical stage from 05/24/2023: cT1a, cN0, cM0, G3, ER+, WI+, HER2: Unknown - Signed by Clarisa Brown MD on 05/24/2023 Pathologic stage from 07/18/2023:Stage IA(pT1a, pN0(sn), cM0, G2, ER+, WI+, HER2-) - Signed by Clarisa Brown MD on 07/18/2023 Encounters Date Type Department Care Team Description 01/22/2025 9:45 AM CDT Office Visit [facility] [address] [place] [id number] Omar Eisenberg, DO Malignant neoplasm of overlapping sites of left breast in female, estrogen receptor positive (HCC) (Primary Dx) 01/22/2025 9:15 AM CDT Lab [facility] at [address] [address] Malignant neoplasm of overlapping sites of left breast in female, estrogen receptor positive (HCC) from Last 3 Months Surgical History Surgery Date Site/Laterality Comments BREAST BIOPSY 04/24/2023 Left BREAST LUMPECTOMY 06/11/1995 - 06/10/1996 Left benign BREAST LUMPECTOMY 06/18/2023 Left Medical History Medical History Date Comments Breast cancer (HCC) 06/18/2023 left breast GERD (gastroesophageal reflux disease) Obesity Irregular heart beat Family History Medical History Relation Name Comments Cancer Father Edbandar Colon cancer Father Edward Cancer Father's Brother No Known Problems Maternal Grandfather Dementia Maternal Grandmother Breast cancer Mother Levonda Cancer Mother Levonda Heart attack Paternal Grandfather Ming Colon cancer Paternal Grandmother Breast cancer Sister Yoselyn Cancer Sister Yoselyn Lung cancer Sister Yoselyn Relation Name Status Comments Father Edbandar Father's Brother Maternal Grandfather Maternal Grandmother Mother Levonda Paternal Grandfather Ming Paternal Grandmother Sister Yoselyn Social History Tobacco Use Types Packs/Day Years Used Date Smoking Tobacco: Never Cigarettes Smokeless Tobacco: Never Tobacco Cessation:Counseling Given: Not Answered AUDIT-C Answer Date Recorded Q1: How often [...] on file Legal 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 Gender Identity Not on file Sexual Orientation Not on file Occupation Industry Job Start Date Job End Date Retired teacher Not on file Not on file Not on file Obstetrics History Para Term AB IAB SAB Ectopic Multiple Livin g Live Births 3 2 2 Date Outcome GA Total Labor Labor/2nd/3rd Weight Sex Type Anes PTL Jamia A1 A5 Name Clin Term Term Last Filed Vital Signs Vital Sign Reading Time Taken Comments Blood Pressure 137/82 01/22/2025 9:33 AM CDT Pulse 51 01/22/2025 9:33 AM CDT Temperature 36.5 C (97.7 F) 01/22/2025 9:33 AM CDT Respiratory Rate 18 01/22/2025 9:33 AM CDT Oxygen Saturation 100% 01/22/2025 9:33 AM CDT Inhaled Oxygen Concentration - - Weight 104.2 kg (229 lb 11.5 oz) 01/22/2025 9:33 AM CDT no shoes Height 167.6 cm (5' 6) 12/18/2024 9:45 AM CDT Body Mass Index 37.08 12/18/2024 9:45 AM CDT Plan of Treatment Health Maintenance Due Date Last Done Comments Colon Cancer Screening-Colonoscopy 1955 Depression Screening 1955 Hepatitis C Screening 1955 Hepatitis B Screening 12/05/1973 Well Visit 65+ 12/05/2020 Osteoporosis Screening-Bone Density Scan 03/06/2024 03/06/2022 Fall Risk Assessment 06/18/2024 06/18/2023 Covid-19 Vaccine (2024-2 6 season) 2025 04/19/2023, 03/20/2022, 04/15/2021, Additional history exists Influenza Vaccine (#1) 2025 , 04/19/2023, 03/20/2022, Additional history exists DTaP/Tdap/Td Vaccine (2 - Td or Tdap) 09/15/2025 09/16/2015 Breast Cancer Screening-Mammogram 12/18/2025 12/18/2024, 12/18/2023, 06/26/2022, Additional history exists Zoster Vaccine Completed 03/06/2019, 01/03/2019 Pneumococcal vaccine 65+ Completed 01/29/2024, 11/0 10/2020 Medical Devices Implanted Type Area Oil Well Logger Device Identifier Shelf Expiration Date Model / Serial / Lot [employer] [place] 20ga 5cm Reposition J Curve Wire [employer] Lenin Stabilizer [id number] - [id number] Implanted:Qty: 1 on 06/18/2023 by Cedrick Sheth MD at [facility] Left: Breast [employer] [id number] 03/22/2028 [id number] / / [id number] Procedures Procedure Name Priority Date/Time Associated Diagnosis Comments EGFR Routine 01/22/2025 9:22 AM CDT Malignant neoplasm of overlapping sites of left breast in female, estrogen receptor positive (HCC) DIFFERENTIAL AUTO Routine 01/22/2025 9:2 2 AM CDT Malignant neoplasm of overlapping sites of left breast in female, estrogen receptor positive (HCC) CBC WITH AUTO DIFFERENTIAL Routine 01/22/2025 9:22 AM CDT Malignant neoplasm of overlapping sites of left breast in female, estrogen receptor positive (HCC) COMPREHENSIVE METABOLIC PANEL Routine 01/22/2025 9:22 AM CDT Malignant neoplasm of overlapping sites of left breast in female, estrogen receptor positive (HCC) SCREENING MAMMOGRAM BILATERAL W ALEJANDRO Schedule Routine, Read Routine (OP Routine) 12/18/2024 10:00 AM CDT Screening mammogram, encounter for from Last 3 Months or Most Recently Relevant to Health Maintenance Results * eGFR (01/22/2025 9:22 AM CDT) eGFR >90 >=60 mL/min/1. 73 m2 Comment: Interpretive Data Reference Interval Normal >/= 90 mL/min/1.73m2 Mildly decreased* 60 - 89 mL/min/1.73m2 Mildly to moderately decreased 45 - 59 mL/min/1.73m2 Moderately to severely decreased 30 - 44 mL/min/1.73m2 Severely decreased 15 - 29 mL/min/1.73m2 Kidney Failure < 15 mL/min/1.73m2 *Relative to young adult level Estimated glomerular filtration rate is determined by the 2020 CKD-EPI equation recommended by the National Kidney Foundation (A Unifying Approach to GFR Estimation: Recommendations of the NKF-ASK Task Force on Reassessing the Inclusion of Race in Diagnosing Kidney Disease, JASN 202). The CKD-EPI equation should not be used for patients with unstable renal function and has not been validated in children and those over 70. Current interpretive data was last reviewed 2021. Testing performed by: [address] [address] Blood 01/22/2025 9:22 AM CDT 01/22/2025 9:23 AM CDT Omar Eisenberg DO LAB BLOOD ORDERABLES Final R esult [place] [id number] [facility] Department of Laboratories [place], [place] [id number] * Differential, auto (01/22/2025 9:22 AM CDT) Neutrophil abs 3.30 1.50 - 6.50 K/cumm Comment:Testing performed by : [address] [address] Imm gran abs 0.02 0.00 - 0.10 K/cumm GOMEZ Comment:Testing performed by : [address] [address] Lymphocyte abs 1.37 0.80 - 3.30 K/cumm GOMEZ Comment:Testing performed by : [address] [address] Monocyte abs 0.53 0.20 - 0.80 K/cumm GOMEZ Comment:Testing performed by : [address] [address] Eosinophil abs 0.05 0.00 - 0.50 K/cumm GOMEZ Comment:Testing performed by : [address] [address] Basophil abs 0.03 0.00 - 0.10 K/cumm GOMEZ Comment:Testing performed by : [address] [address] Neutrophil pct 62.3 % [facility] Comment: Interpretive Data Percent cell count reference ranges are not reported, since discordance with absolute values may lead to misinterpretation of CBC data. Current Interpretive Data was last revised on 2017. Testing performed by: [address] [address] Imm gran pct 0.4 % [facility] Comment: Interpretive Data Percent cell count reference ranges are not reported, since discordance with absolute values may lead to misinterpretation of CBC data. Current Interpretive Data was last revised on 2017. Testing performed by: [address] [address] Lymphocyte pct 25.8 % [facility] Comment: Interpretive Data Percent cell count reference ranges are not reported, since discordance with absolute values may lead to misinterpretation of CBC data. Current Interpretive Data was last revised on 2017. Testing performed by: [address] [address] Monocyte pct 10.0 % [facility] Comment: Interpretive Data Percent cell count reference ranges are not reported, since discordance with absolute values may lead to misinterpretation of CBC data. Current Interpretive Data was last revised on 2017. Testing performed by: [address] [address] Eosinophil pct 0.9 % [facility] Comment: Interpretive Data Percent cell count reference ranges are not reported, since discordance with absolute values may lead to misinterpretation of CBC data. Current Interpretive Data was last revised on 2017. Testing performed by: [address] [address] Basophil pct 0.6 % [facility] Comment: Interpretive Data Percent cell count reference ranges are not reported, since discordance with absolute values may lead to misinterpretation of CBC data. Current Interpretive Data was last revised on 2017. Testing performed by: [address] [address] Blood 01/22/2025 9:22 AM CDT 01/22/2025 9:23 AM CDT Omar Eisenberg DO LAB BLOOD ORDERABLES Final R esult [place] [address] [facility] Department [place] [address] * CBC with auto differential (01/22/2025 9:22 AM CDT) WBC 5.30 3.80 - 9.90 K/cumm Comment:Testing performed by : [address] [address] Hgb 12.4 11.9 - 15.5 g/dL GOMEZ Comment:Testing performed by : [address] [address] Hct 37.4 35.6 - 45.5 % GOMEZ Comment:Testing performed by : [address] [address] Plt 276 150 - 400 K/cumm GOMEZ Comment:Testing performed by : [address] [address] MPV 10.7 9.1 - 12.3 fL GOMEZ Comment:Testing performed by : [address] [address] RBC 3.94 3.90 - 5.20 M/cumm GOMEZ Comment:Testing performed by : [address] [address] MCV 94.9 81.3 - 96.4 fL GOMEZ Comment:Testing performed by : [address] [address] MCH 31.5 27.1 - 33.3 pg GOMEZ ALVAREZ Comment:Testing performed by : [address] [address] MCHC 33.2 32.3 - 35.7 g/dL GOMEZ [place] Comment:Testing performed by : [address] [address] RDW CV 13.4 11.1 - 14.9 % GOMEZ [place] Comment:Testing performed by : [address] [address] RDW SD 46.7 35.7 - 48.1 fL G[facility] [place] Comment:Testing performed by : [address] [address] NRBC abs 0.00 0.00 - 0.01 K/cumm GOMEZ [place] Comment:Testing performed by : [address] [address] ANC Prelim 3.30 1.50 - 6.50 K/cumm GOMEZ [place] Comment: Interpretive Data The rapid ANC is a preliminary automated count and may vary from the final ANC (Neut Abs) reported in the WBC differential that follows. Current interpretive data was last revised 2024. Testing performed by: [address] [address] Blood 01/22/2025 9:22 AM CDT 01/22/2025 9:23 AM CDT Omar Eisenberg DO LAB BLOOD ORDERABLES Final R esult GOMEZ ALV[facility] Department of Laboratories [place], [place] [id number] * (ABNORMAL) Comprehensive metabolic panel (01/22/2025 9:22 AM CDT) Sodium 139 135 - 145 mmol/L Comment:Testing performed by : [address] [address] Potassium, pl 5.3(H) 3.3 - 4.9 mmol/L GOMEZ ALVAREZ Comment:Testing performed by : [address] [address] Chloride 103 97 - 110 mmol/L GOMEZ [place]Z Comment:Testing performed by : [address] [address] CO2 26 22 - 32 mmol/L GOMEZ ALVAREZ Comment:Testing performed by : [address] [address] Anion gap 10 2 - 15 mmol/L GOMEZ Comment:Testing performed by : [address] [address] BUN 17 6 - 25 mg/dL GOMEZ Comment:Testing performed by : [address], [place]., [address] Creatinine 0.70 0.60 - 1.10 mg/dL GOMEZ Comment:Testing performed by : [address] [address] Glucose 104 70 - 199 mg/dL GOMEZ Comment: Interpretive Data Fasting glucose >/= 126 mg/dl is diagnostic for diabetes. Fasting is defined as no caloric intake for at least 8 hours. Fasting glucose between 100 mg/dl to 125 mg/dl is diagnostic of prediabetes. In a patient with classic symptoms of hyperglycemia or hyperglycemic crisis, a random glucose >/= 200 mg/dl is diagnostic for diabetes. In the absence of unequivocal hyperglycemia, results should be confirmed by repeat testing. The classification and Diagnosis of Diabetes Diabetes Care 202; 46: S19-S40. Current interpretive data was last revised 2022. Testing performed by: [address] [address] Calcium 9.4 8.5 - 10.3 mg/dL GOMEZ Comment:Testing performed by : [address] [address] Bilirubin, total 0.3 0.1 - 1.2 mg/dL GOMEZ Comment:Testing performed by : [address] [address] Protein, pl 7.1 6.5 - 8.5 g/dL GOMEZ Comment:Testing performed by : [address] [address] Albumin 4.2 3.5 - 5.0 g/dL GOMEZ Comment:Testing performed by : [address] [address] Alk phos 60 40 - 130 Units/L GOMEZ Comment:Testing performed by : [address] [place]., [address] ALT 26 7 - 45 Units/L GOMEZ ALVAREZ Comment:Testing performed by : [facility], [address] [place] [address]., [address] AST 21 10 - 45 Units/L GOMEZ ALVAREZ Comment:Testing performed by : [facility], [address] [place] [address]., [address] Blood 01/22/2025 9:22 AM CDT 01/22/2025 9:23 AM CDT Omar Eisenberg DO LAB BLOOD ORDERABLES Final R esult [facility] [address] [facility] Department [place] [address] * Screening Mammogram Bilateral W Alejandro (12/18/2024 10:00 AM CDT) Anatomical Region Laterality Modality Breast Bilateral Mammography Impressions 12/18/2024 12:01 PM CDT Bilateral No evidence of malignancy in either breast. OVERALL BI-RADS FINAL ASSESSMENT: 2 - Benign RECOMMENDATION: Recommend bilateral annual screening mammography. Narrative 12/18/2024 12:01 PM CDT EXAMINATION: Screening Mammogram Bilateral W Alejandro: 12/18/2024 COMPARISON: Relevent prior studies available at the time of interpretation were reviewed, including the most recent mammogram on: 12/18/2023. TECHNIQUE: Mammography was performed with 2D and digital breast tomosynthesis (DBT) images. CAD was utilized. BREAST PARENCHYMAL COMPOSITION: There are scattered areas of fibroglandular density. FINDINGS: Bilateral There is no suspicious mass, calcification, or architectural distortion in either breast. Personal history of left breast cancer s/p conservation therapy. Self Screening Mammogram IMG MAMMO PROCEDURES Fi nal Result from Last 3 Months or Most Recently Relevant to Health Maintenance Insurance [facility] MEDICARE [employer] Address: [address] [address] [place] [address] [facility] MEDICARE [employer]AGE [facility] Address: [address] [address] [place] [address] Care Teams Milk Condenser Relationship Specialty Start Date End Date Phoebe Zarco DO [address] [place] [address] [address] [place], [place] [address] PCP - General Family Medicine 12/18/24 Randal Bullock MD [address] [place] [address] [address] [place], [place] [id number] Surgeon General Surgery 05/17/23 Omar Eisenberg DO [address] [place] [address] [facility] [address] [place] [address] Medical Oncologist/Gift Wrapper Hematology and Oncology 05/17/23 Clarisa Brown MD [address] [facility] [address] [place] [address] Radiation Oncologist Radiation Oncology 08/07/23
--- OUTSIDE RECORDS SUMMARY | 2025-04-14 13:47 | XMS_ITS ---
Author Organization [facility] Address [address] [place] [id number] Care Team Providers Care Credit Collector Name Role Phone Randal Bullock MD Unavailable [phone] Omar Eisenberg DO Unavailable [phone] Clarisa Brown MD Unavailable [phone] Phoebe Zarco DO Primary Care Provider [phone] Active Problems Problem Noted Date Diagnosed Date Palpitations 12/20/2023 Bradycardia 12/20/2023 PVC (premature ventricular contraction) 12/20/19 24 Personal history of radiation therapy 10/03/2023 Malignant neoplasm of overla pping sites of left breast in female, estrogen receptor positive 04/24/2023 04/24/2023 Cancer Staging:Clinical stage from 05/24/2023: cT1a, cN0, cM0, G3, ER+, MN+, HER2: Unknown - Signed by Clarisa Brown MD on 05/24/2023 Pathologic stage from 07/18/2023:Stage IA(pT1a, pN0(sn), cM0, G2, ER+, MN+, HER2-) - Signed by Clarisa Brown MD on 07/18/2023 Current Treatment and Therapy Plans No current plan information found. Past Treatment and Therapy Plans No past plan information found. 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 [address] This Survivorship Care Plan is a cancer treatment summary and follow-up plan and is provided to youto keep with your health care records and to share with your primary care provider or any of your doctors and nurses. This summary is a brief record of major aspects of your cancer treatment not a detailed or comprehensive record of your care. You should review this with your cancer provider. Treatment Summary and Survivorship Care Plan for Breast Cancer General Information Patient name Millicent Wellington (home) [phone] (work) Date of 1955 Health Care Providers (Including Names, Institutions) Provider Name: Contact Information: Primary Care Physician Gary Borrero MD [phone] Surgeon Randal Bullock MD [phone] Radiation Oncologist Clarisa Brown MD [phone] Medical Oncologist Omar Eisenberg DO [phone] Treatment Summary Cancer Diagnosis Information Diagnosis Malignant neoplasm of overlapping sites of left breast in female, estrogen receptor positive (HCC) Diagnosis date 04/24/2023 Staging information Cancer Staging Malignant neoplasm of overlapping sites of left breast in female, estrogen receptor positive (HCC) Staging form: Breast, AJCC 8th Edition - Clinical stage from 05/24/2023: cT1a, cN0, cM0, G3, ER+, MN+, HER2: Unknown - Signed by Clarisa Brown MD on 05/24/2023 Estrogen: Positive Progesterone: Positive HER2: Unknown Treatment Completed Surgery Surgery date 04/24/2023 Surgical procedure Left Breast biopsy Surgery date 06/18/2023 Surgical procedure Left Lumpectomy Radiation Radiation Treatments Active No active radiation treatments to show. Historical Plans LEFT BREAST Most recent treatment: Dose planned: 267 cGy (fraction 15 on 08/22/2023) Total: Dose planned: 4,005 cGy Elapsed Days: 20 LT BRS BOOST Most recent treatment: Dose planned: 250 cGy (fraction 5 on 08/29/2023) Total: Dose planned: 1,250 cGy Elapsed Days: 27 Reference Points LEFT BREAST Most recent treatment: Dose given: 267 cGy (on 08/22/2023) Total: Dose given: 4,005 cGy Elapsed Days: 20 LT BREAST BOOST Most recent treatment: Dose given: 250 cGy (on 08/29/2023) Total: Dose given: 1,250 cGy Elapsed Days: 27 Systemic Therapy (chemotherapy, hormonal therapy, other) [No matching plan found] Lifetime Dose Tracking Lifetime Dose Tracking No doses have been documented on this patient for the following tracked chemicals: doxorubicin, epirubicin, idarubicin, daunorubicin, mitoxantrone, bleomycin, mitomycin, cyclophosphamide, carmustine,cisplatin, ifosfamide, carboplatin, fluorouracil, etoposide, doxorubicin HCl pegylated liposomal, et oposide phosphate, valrubicin, doxorubicin isotoxic equivalent Research Studies Persistent symptoms or side effects that have continued after finishing treatment: fatigue, numbness, pain Family History Cancer Cancer-related family history is not on file. Genetic Testing No Tell your provider if there is a history of cancer in your family, if another member of your familywas diagnosed with cancer since your last visit. The following risk factors may indicate that breast cancer could run in the family: Hindu heritage History of ovarian cancer in the patient or any 1st or 2nd degree relative Any 1st degree relative with breast cancer before the age of 50 Two or more 1st or 2nd degree relative diagnosed with breast cancer at any age Patient or relative diagnosed with bilateral breast cancer History of breast cancer in a male relative Treatment Ongoing Additional Treatment Start Date Planned Duration Possible Side Effects Tamoxifen Hot flashes and vaginal discharge (common); endometrial cancer, serious blood clots and eye problems (all very rare). Other rare side effects may occur. Aromatase Inhibitors (anastrozole, exemestane and letrozole) 07/20/23 Tamoxifen or aromatase inhibitor to be taken for a total of 5 years (may be a combination of medications to total 5 years together) Hot flashes, joint/muscle aches, vaginal dryness and bone loss (common); hair thinning (rare) Other rare side effects may occur. Calcium + Vitamin D recommend 600 mg/day calcium & 2000 IU/day vitamin D Daily An irregular heartbeat; nausea, constipation; weakness, drowsiness, headache; dry mouth, or ametallic taste in your mouth; or muscle or bone pain. Follow-up Care Plan Your follow-up care plan is design to inform you and primary care providers regarding the recommended and required follow-up, cancer screening and routine health maintenance that is needed to maintain optimal health. Coordinating Provider When/How often Omar Eisenberg DO Every 3-6 Months for year 1 to 3 Omar Eisenberg DO Every 6-12 Months for year 4 to 5 Clarisa Brown MD Indicated by provider No care steam table associate to display Yearly Gary Borrero After 5 years, annual follow up Cancer Surveillance or other Recommended Tests Coordinating Provider Test How Often Omar Eisenberg DO - Year 1-5, Gary Borrero MD - After year 5 Mammogram for remaining breast(s) Yearly THERAPY SITE COORDINATOR: No care steam table associate to display Pap/pelvic exam (woman only) As indicated by provider Medical Oncologist: Omar Eisenberg DO, PCP: Gary Borrero Bone Density Every 2 years if on an aromatase inhibitor or as indicated by your provider CT/PET and tumor markers. Not recommended in the absence of signs or symptoms of cancer recurrence Possible late- and long-term effects that someone with this type of cancer and treatment may experience: Fatigue Many patients experience some level of fatigue. Some patients experience severe and ongoing fatigue. An active lifestyle with healthy sleep patterns can improve your energy levels. Talk to your provider about ongoing (more than 3 months) fatigue. Osteoporosis Patients on hormone therapies and who experience early menopause are at a higher risk of developingfractures, osteopenia (lower than normal bone density) and osteoporosis (loss of bone density). Weight bearing exercise, adequate intake calcium and vitamin D are helpful. Bone density scans are usedto evaluate bone health. Movement or strength changes Some patients experience loss of strength or difficulty with mobility or range of motion after surgery or their cancer treatments. Talk with your provider if you can no longer move the way you did before your cancer treatment or if you feel weak or unsteady or you have fallen. Physical therapy or rehabilitation may be helpful. Weight management and Nutrition Some patients find it difficult to maintain good nutrition during or after treatment. This can leadto weight loss or weight gain. Aim for a normal body mass index (BMI) of 18.5-24.9, talk to your provider about your BMI. Being overweight may increase your risk of cancer recurrence and other diseases. Eat a healthy diet, focus on lean meats and proteins, more fruits, vegetables and whole grains and low in sugars and fats. Limit red meat and avoid processed meat. Work to maintain healthy weight behaviors that include diet and physical activity. Menopause or Sexual changes or symptoms of estrogen deprivation (hot flashes, sweats, vaginal discharge or dryness, painful intercourse). The desire to engage in sexual activity may lessen due to low energy, decreased sexual function and/or changes in appearance. Symptoms of menopause may cause vaginal changes and/or dryness. Your riskdepends on your age and the kind of treatment you received. Cancer diagnosis and treatment may cause existing sexual problems to be worse. Evaluation of sexual function and professional counseling may be helpful. The use of wjbr-sdh-jzpjrak lubricants may lessen painful intercourse. Talk with your provider about sexual changes and symptoms of menopause. Promising non-hormone treatments that may include antidepressants (drugs that treat depression), dietary changes, acupuncture and exercise may h elp lessen symptoms. Psychosocial Distress (Emotional stress, worry or depression). Many patients experience distress, anxiety or depression at some point. This can include worry, difficulty sleeping or sadness and often lessens over time. Discuss this with your provider; a referralto a therapist may be helpful. Physical activity has been shown to relieve stress. Some patients may benefit from the use of medication. It is important to remember that these symptoms can be due to other causes like diabetes or with normal aging. If these or any other new symptoms occur bring these to attention of your health care provider. These symptoms should be brought to the attention of your provider: Anything that represents a brand new symptom; Anything that represents a persistent symptom; Anything you are worried about that might be related to the cancer coming back. Please continue to see your primary care provider for all general health care recommended for a patient your age such as routine immunizations, and routine non-breast cancer screening like colonoscopy or bone density exams. Consult with your health care provider about prevention and screening for bone loss using bone density tests. Cancer survivors may experience issues with the areas listed below. If you have any concerns in these or other areas, please speak with your doctors or nurses to find out how you can get help with them. Anxiety and depression Emotional and mental health Fatigue Fertility Financial advice or assistance Insurance Memory or concentration loss Parenting Physical functioning School/work Sexual functioning Stopping smoking Weight changes Other A number of lifestyle/behaviors can affect your ongoing health, including the risk for the cancer coming back or developing another cancer. Discuss these recommendations with your doctor or nurse: Eat a healthy diet: focus on lean meats and proteins, more fruits, vegetables and whole grains and low in sugars and fats. Limit red meat and avoid processed meat. Maintain a healthy weight; avoid being overweight. Aim for a normal body mass index (BMI) of 18.5-24.9. Help learning to eat healthier, call the medical case worker at: [facility] Laura Have an active lifestyle, strive for 30 minutes of moderate exercise 5 times a week and strength orresistance training at least twice a week. Use broad-spectrum (UVA+UVB) sunscreen with SPF 30 or greater, is water resistant, limit time spentin the sun (10 am-4 pm), wear hat, wear UV protective clothing, wear sunglasses. Never use a tanning bed. Skin that was irradiated may be more sensitive over your lifetime. Do not smoke or chew tobacco; participate in a smoking cessation program. Limit alcohol intake, 1 drink per day for a woman and 2 drinks per day for a man. Resources you may be interested in: [facility] A National [facility] [place] [facility] http://www.[facility]/ [facility] 1st floor of [facility] [phone]. Computer access, educational material, counseling services (FREE) Cancer Resources: www.cancer.net [place] Disabilities Act: The U.S. Department of Justice provides information about the Americans with Disabilities Act (ADA). Toll free number http://www.ada.gov/ Occupational Therapy at [facility]. Improve memory and thinking following chemotherapy. Improve your performance at home, work and in the community. or Toll free www.ot.[facility]/patients Managing your weight after a cancer diagnosis: http://www.cancer.net/sites/cancer.net/files/weight_after_cancer_diagnosis.pdf National Coalition for Cancer Survivorship: http://www.canceradvocacy.org/ [place] [employer] Society Cancer Survivors Network: http://csn.cancer.org/ [employer]: https://survivorship.cancer.gov/ an online tool for cancer survivors andcaregivers created by the [place] Cancer Society and the National Cancer [place]. It provides: Information on dealing with side effects from cancer and treatment Caregivers with support and resources Practical advice about talking to friends and family about cancer Questions to ask their health care team Help understanding their rights in the workplace
== END 2025-04-14 11:26 | disposition home or self-care (01) ==
LOC: ANHIMG 11:29
PROVIDERS: PCP Family Medicine; Visit Provider Plastic Surgery
DX: S62.305D Unspecified fracture of fourth metacarpal bone, left hand, subsequent encounter for fracture with routine healing (principal); X58.XXXD Exposure to other specified factors, subsequent encounter; M18.12 Unilateral primary osteoarthritis of first carpometacarpal joint, left hand
CPT/HCPCS: 73130